=== PATIENT | female | born 1980 | race African-American/Black ===

== ENCOUNTER 2020-11-04 15:46 | Outpatient (CLI) | payer MEDICAID | END 2020-11-04 15:47 | disposition home or self-care (01) | LOC: CSHMAMMO 15:46 | PROVIDERS: ATTEND Nurse Practitioner Family | DX: Z12.31 Encounter for screening mammogram for malignant neoplasm of breast (principal) | CPT/HCPCS: 77067 ==

== ENCOUNTER 2021-11-18 15:16 | Outpatient (CLI) | payer MEDICAID | END 2021-11-18 15:17 | disposition home or self-care (01) | LOC: CSHMAMMO 15:16 | PROVIDERS: ATTEND Nurse Practitioner Family | DX: Z12.31 Encounter for screening mammogram for malignant neoplasm of breast (principal); R14.0 Abdominal distension (gaseous); R19.00 Intra-abdominal and pelvic swelling, mass and lump, unspecified site | CPT/HCPCS: 74019; 77067 ==

== ENCOUNTER 2021-11-30 14:10 | Outpatient (CLI) | payer MEDICAID | END 2021-11-30 14:11 | disposition home or self-care (01) | LOC: CSHULT 14:10 | PROVIDERS: ATTEND Nurse Practitioner Family | DX: R19.00 Intra-abdominal and pelvic swelling, mass and lump, unspecified site (principal); D25.9 Leiomyoma of uterus, unspecified | CPT/HCPCS: 76856; 93976 ==

== ENCOUNTER 2022-11-23 15:08 | Outpatient (CLI) | payer MEDICAID | END 2022-11-23 15:09 | disposition home or self-care (01) | LOC: CSHMAMMO 15:08 | PROVIDERS: ATTEND Nurse Practitioner Family | DX: Z12.31 Encounter for screening mammogram for malignant neoplasm of breast (principal) | CPT/HCPCS: 77067 ==

== ENCOUNTER 2023-12-25 13:57 | Outpatient (CLI) | payer MEDICAID | END 2023-12-25 13:58 | disposition home or self-care (01) | LOC: CSHMAMMO 13:57 | PROVIDERS: ATTEND Nurse Practitioner Family | DX: Z12.31 Encounter for screening mammogram for malignant neoplasm of breast (principal) | CPT/HCPCS: 77067 ==